=== PATIENT | female | born 1985 | race Two or more races ===

== ENCOUNTER 2021-11-15 18:44 | Emergency (ER) | payer MEDICAID ==
[~2021-11-15] VITALS: Ht 154.9 cm; Wt 49.0 kg
[2021-11-15] MEDS ORDERED: AMOX500C2 PO (22:21)
--- NOTE | 2021-11-15 22:22 | NUR ---
patient is a/ox4, NAD noted. Patient is able to walk with steady gait. Patient denies SOB
[2021-11-15] MEDS ORDERED: ACETAMINOPHEN 325 MG TABLET ONE (22:26)
[2021-11-15] MEDS ORDERED: AMOXicillin 250 MG CAPSULE ONE (22:27)
[2021-11-15] MEDS ORDERED: AMOXicillin 250 MG CAPSULE PO ONE (22:30)
[2021-11-15] MEDS ORDERED: ACETAMINOPHEN 325 MG TABLET PO ONE (22:30)
[2021-11-15 22:37] VITALS: BP 122/70
== END 2021-11-15 22:37 | disposition home or self-care (01) ==
LOC: ER 18:45
DX: J02.9 Acute pharyngitis, unspecified (principal); J45.909 Unspecified asthma, uncomplicated; Z87.01 Personal history of pneumonia (recurrent)
CPT/HCPCS: A4663